=== PATIENT | female | born 2000 | race Hispanic/Latino ===

== ENCOUNTER 2024-04-02 16:44 | Emergency (ER) | payer BC, MEDICAID ==
[~2024-04-02] VITALS: Ht 167.6 cm; Wt 63.5 kg
--- NOTE | 2024-04-02 17:29 | ERN ---
ED Note History of Present Illness Stated Complaint: POSSIBLE MISCARRIAGE Chief Complaint: Vaginal Problems/Bleeding Time Seen by MD: 16:47 Time Seen by Midlevel: 16:52 Dictation: Ms. Gómez is a 23-year-old female with history of frequent UTIs who presented to the emergency department this afternoon for evaluation of vaginal bleeding. She states that she does not know if she is and has not taken a test. She had unprotected sex on 01/31 and utilized telehealth to obtain Plan B medication. On March 08 she noted light spotting of dark brown discharge which persisted until last week when she began to have increased vaginal bleeding like a periof. She states that yesterday she developed lower abdominal cramping which has gotten more severe as well as low back pain. Today she is passing large clots prompting her to come to the hospital. She brings pad with clot and possible tissue. She denies having fever or chills. She denies chest pain, palpitations, shortness of breath, cough, nausea, vomiting, diarrhea, dysuria, headache, or dizziness. 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 EYES: Patient denies any visual symptoms. EARS, NOSE, AND THROAT: No difficulties with hearing. No symptoms of rhinitis or sore throat. CARDIOVASCULAR: Patient denies chest pains, palpitations, orthopnea and paroxysmal nocturnal dyspnea. RESPIRATORY: No dyspnea on exertion, no wheezing or cough. GI: No nausea, vomiting, diarrhea, constipation, hematochezia or melena. Reports lower abdominal pain/cramping. : No urinary hesitancy or dribbling. No nocturia or urinary frequency. No abnormal urethral discharge. Reports history of frequent UTI. Reports low back pain. Reports vaginal bleeding with large clots. States she does not know if she could be . She has not taken a test. MUSCULOSKELETAL: No myalgias or arthralgias. NEUROLOGIC: No chronic headaches, no seizures. Patient denies numbness, tingling or weakness. PSYCHIATRIC: Patient denies problems with mood disturbance. No problems with anxiety. ENDOCRINE: No excessive urination or excessive thirst. DERMATOLOGIC: Patient denies any rashes or skin changes. Initial Vital Sign VS Vital Signs Date Time Temp Pulse Resp B/P (MAP) Pulse Ox O2 Delivery O2 Flow Rate FiO2 04/02/24 16:54 98.8 109 20 139/76 98 Room Air 0 04/02/24 17:34 21 Physical Exam Dictation Vital signs: Reviewed. Afebrile Constitutional: Tearful, crying Head/Face: Normocephalic, atraumatic. Eyes: Periorbital areas with no swelling, redness, or edema. Lids and lashes are normal. Conjunctival injection is absent. Sclera anicteric. Pupils equal, round, reactive to light. ENT: Pinnas intact and no signs of trauma or erythema. Ear canals clear and no discharge. TMs no erythema. No nasal discharge or bleeding noted. Oropharynx with no exudate, redness, swelling, masses, exudates, or evidence of obstruction. Uvula midline. Mucous membranes moist. Neck: Trachea midline, no masses palpated, and no cervical lymphadenopathy. No swelling. Supple, full range of motion. Chest/Axilla: No tenderness, no crepitus, no paradoxical movement, no retractions. Cardiovascular: Regular rate, regular rhythm, no murmur, no gallops. Symmetric pulses. No peripheral edema. Normotensive. Heart rate 109. Respiratory: Respirations even and unlabored. Lung sounds clear; no wheezes, rales or rhonchi. Room air SpO2 99% Gastrointestinal: Inspection is normal. No distention is appreciated. Bowel sounds are normal. No mass or organomegaly . There is tenderness to RLQ and LLQ. No rebound. No rigidity. No voluntary or involuntary guarding. No Lee's sign. Neurological: Normal speech, gross motor function intact, gross sensory function intact. No focal weakness/Paresthesia. Musculoskeletal/Extremities: All extremities have full range of motion, no pain or tenderness on palpation. Symmetric pulses. Integumentary: Intact. Skin is normal color, warm and dry. Cap refill less than 3 seconds. Results (Laboratory/Radiology) Laboratory/Radiology Laboratory Tests Test 04/02/24 17:55 04/02/24 18:19 Urine Color COLORLESS (YELLOW) Urine Appearance CLEAR (CLEAR) Urine pH 6.0 (5.0-8.0) Urine Specific Moss 1.008 (1.001-1.031) Urine Protein NEGATIVE mg/dL (NEGATIVE) Urine Glucose (UA) NEGATIVE mg/dL (NEGATIVE) Urine Ketones NEGATIVE mg/dL (NEGATIVE) Urine Occult Blood LARGE (NEGATIVE) H Urine Nitrate NEGATIVE (NEGATIVE) Urine Bilirubin NEGATIVE mg/dL (NEGATIVE) Urine Urobilinogen 0.2 mg/dL (0.2-1.0) Urine Leukocyte Esterase NEGATIVE Lina/uL Urine RBC 51-100 /HPF (0-1) H Urine WBC 2-5 /HPF (0-1) H Urine Squamous Epithelial Cells RARE /HPF (0-2) Urine Bacteria None /HPF (None Seen) White Blood Count 11.1 K/uL (4.8-10.8) H Red Blood Count 4.25 MIL/uL (4.00-5.50) Hemoglobin 12.0 g/dL (12.0-16.0) Hematocrit 35.7 % (36-48) L Mean Corpuscular Volume 84.0 fL (80-100) Mean Corpuscular Hemoglobin 28.2 pg (27.0-33.0) Mean Corpuscular Hemoglobin Concent 33.6 g/dL (32.0-36.0) Red Cell Distribution Width 12.6 % (11.0-15.5) Platelet Count 212 K/uL (130-400) Mean Platelet Volume 11.1 fL (7.5-10.5) H Immature Granulocyte % (Auto) 0.4 % (0-1) Neutrophils (%) (Auto) 77.6 % (40.0-77.0) H Lymphocytes (%) (Auto) 15.1 % (21.0-51.0) L Monocytes (%) (Auto) 5.4 % (3.0-13.0) Eosinophils (%) (Auto) 1.1 % (0.0-8.0) Basophils (%) (Auto) 0.4 % (0.0-5.0) Neutrophils # (Auto) 8.7 K/uL (1.8-7.7) H Lymphocytes # (Auto) 1.7 K/uL (1.0-4.8) Monocytes # (Auto) 0.6 K/uL (0.1-1.0) Eosinophils # (Auto) 0.12 K/uL (0.00-0.70) Basophils # (Auto) 0.05 K/uL (0.00-0.20) Absolute Immature Granulocyte (auto 0.04 K/uL (0-1) Nucleated Red Blood Cells 0.0 % (0.0-0.19) Sodium Level 140 mmol/L (136-145) Potassium Level 3.6 mmol/L (3.5-5.1) Chloride Level 103 mmol/L (101-111) Carbon Dioxide Level 30 mmol/L (21-32) Blood Urea Nitrogen 7 mg/dL (7-18) Creatinine 0.5 mg/dL (0.5-1.0) Glomerular Filtration Rate Calc 137 mL/min (>90) Random Glucose 97 mg/dL (70-105) Total Calcium 9.1 mg/dL (8.5-10.1) Human Chorionic Gonadotropin, Quant 5411 mIU/mL (0-5) H Serum Test, Qualitative POSITIVE (NEGATIVE) H Labs Reviewed?: Yes ED Course ED Course Orders Procedure Category Date Status Time Cbc With Differential LAB 04/02/24 Complete 17:28 Basic Metabolic Panel LAB 04/02/24 Complete 17:28 Testing, LAB 04/02/24 Complete Serum Hcg 17:28 Urinalysis Profile LAB 04/02/24 Complete 17:28 Hcg,Quantitative LAB 04/02/24 Complete 18:55 Us Ob <14 Weeks US 04/02/24 Taken 19:47 Vital Signs Date Time Temp Pulse Resp B/P (MAP) Pulse Ox O2 Delivery O2 Flow Rate FiO2 04/02/24 19:05 97.5 77 20 124/80 100 Room Air* 0 04/02/24 17:34 97.5 74 20 122/88 100 Room Air* 0 21 04/02/24 16:54 98.8 109 20 139/76 98 Room Air 0 Signs remained stable; afebrile and normotensive. Room air SpO2 98-100%. She is tearful/emotional. She states she continues to have lower abdominal cramping as well as low back pain but declines analgesics. WBCs slightly elevated at 11.1. Serum hCG positive. HCG quantitative 5411. Ob sono was performed which revealed complete . Tissue/clot was sent to pathology for analysis. She states she will follow up with veneer taper Dr. Corey Pringle. Medical Decision Making MDM MDM: Differential diagnosis: complete AB, partial AB, anemia secondary to hemorrhage Rationale: Tests considered and ordered secondary to shared decision making include: Lab, US Previous outside records reviewed: Old ER visits. Risk of complication and/or morbidity or mortality of patient management: None Medications-Per medication reconciliation Need for hospitalization: Patient does not meet criteria for hospitalization. Need for emergency major/minor surgery: No There are no social concerns with this patient. Prescription drug management: OTC Tylenol or Ibuprofen Prescriptions will include symptomatic care Patient's prior external medical records from other ER visits were reviewed by me as indicated. Prior testing and results from previous visits were reviewed. Prior tests were taken into account with medical decision making and resource utilization, independent historian/historians were used to obtain complete medical history. I independently interpreted the test that were performed, results were reviewed by me and considered findings on radiology if ordered. Medical management and examination interpretation discussions were had by me with other qualified healthcare professionals as indicated for the patient's care. DX & DISP Disposition: Discharge Departure Impression: Primary Impression: Miscarriage Additional Impressions: Abdominal cramping, Vaginal bleeding Condition: Stable Additional Instructions: Rest. Drink plenty of fluids. May take [id number] Tylenol or ibuprofen as needed for discomfort. Take copies of labs/ultrasound report with you for follow up with Dr. Pringle. Return immediately to the emergency department for concerning symptoms such as fever, uncontrolled pain, or vaginal bleeding grea ter than one pad per hour. Referrals: NONE (PCP) NAEEM PRINGLE MD Time of Disposition: 20:29 JERICA LLOYD NP Apr 02, 2024 17:29
[2024-04-02 18:15] LABS: APPEARANCE,URINE CLEAR (CLEAR); BILIRUBIN,URINE NEGATIVE (NEGATIVE); COLOR,URINE COLORLESS (YELLOW); GLUCOSE, URINE (UA) NEGATIVE (NEGATIVE); KETONES,URINE NEGATIVE (NEGATIVE); LEUKOCYTE ESTERASE ,URINE NEGATIVE Leu/uL (NEGATIVE); NITRATE,URINE NEGATIVE (NEGATIVE); OCCULT BLOOD,URINE LARGE (NEGATIVE); PROTEIN,URINE NEGATIVE (NEGATIVE); UROBILINOGEN,URINE 0.2 mg/dL (0.2-1.0)
[2024-04-02 18:16] LABS: ADD UA MICROSCOPIC YES
[2024-04-02 18:21] LABS: RBC,URINE 51-100 /HPF (0-1); SQUAMOUS EPITHELIAL CELL,UR RARE /HPF (0-2)
[2024-04-02 18:25] LABS: BASOPHILS # (AUTO) 0.05 K/uL (0.00-0.20); BASOPHILS % (AUTO) 0.4 % (0.0-5.0); EOSINOPHILS # (AUTO) 0.12 K/uL (0.00-0.70); EOSINOPHILS % (AUTO) 1.1 % (0.0-8.0); HEMATOCRIT 35.7 % (36-48); IMMATURE GRANULOCYTE ABSOLUTE 0.04 K/uL (0-1); LYMPHOCYTES # (AUTO) 1.7 K/uL (1.0-4.8); LYMPHOCYTES % (AUTO) 15.1 % (21.0-51.0); MEAN CORPUSCULAR HEMOGLOBIN 28.2 pg (27.0-33.0); MEAN CORPUSCULAR HGB CONC 33.6 g/dL (32.0-36.0); MONOCYTES # (AUTO) 0.6 K/uL (0.1-1.0); MONOCYTES % (AUTO) 5.4 % (3.0-13.0); NEUTROPHILS # (AUTO) 8.7 K/uL (1.8-7.7); NEUTROPHILS % (AUTO) 77.6 % (40.0-77.0); PLATELET COUNT (AUTO) 212 K/uL (130-400); RED BLOOD CELL COUNT(AUTO) 4.25 MIL/uL (4.00-5.50); RED CELL DISTRIBUTION WIDTH 12.6 % (11.0-15.5); WHITE BLOOD COUNT (AUTO) 11.1 K/uL (4.8-10.8)
[2024-04-02 18:37] LABS: CREATININE 0.5 mg/dL (0.5-1.0); POTASSIUM 3.6 mmol/L (3.5-5.1)
[2024-04-02 19:05] VITALS: BP 124/80; PULSE 77; RESP 20; TEMP 97.6; O2SAT 100
--- NOTE | 2024-04-02 21:21 | HMCIMG ---
US OB <14 WEEKS HISTORY: vaginal bleeding; HCG 5411 COMPARISON: None FINDINGS: Uterus measures 6.8 centers in length with no identified intrauterine gestation. The endometrium measures 7 mm. There is no adnexal mass or free fluid. The ovaries are unremarkable size echogenicity and vascularity. IMPRESSION: There is no identified intrauterine gestation or adnexal masses.
--- NOTE | 2024-04-02 21:30 | NUR ---
P.O.C WEIGHT: 20G
--- NOTE | 2024-04-02 21:30 | NUR ---
PER PATIENT P.O.C DELIVERED AT 1630 04/02/24
== END 2024-04-02 22:07 | disposition home or self-care (01) ==
LOC: EDH 16:44
DX: O03.9 Complete or unspecified spontaneous abortion without complication (principal); O26.891 Other specified pregnancy related conditions, first trimester; R10.84 Generalized abdominal pain; R10.2 Pelvic and perineal pain; Z3A.01 Less than 8 weeks gestation of pregnancy
CPT/HCPCS: 36415; 76801; 80048; 81001; 84702; 84703; 85025; 88305; 99284